=== PATIENT | female | born 1965 | race Caucasian/White ===

== ENCOUNTER → 2019-11-16 | Outpatient (CLI) | payer OTHER ==
--- NOTE | 2019-11-16 12:53 | XR ---
EXAM TYPE: LUMBAR SPINE X RAY SERIES COMPARISON: NONE HISTORY: Pain TECHNIQUE: 4 views are submitted. FINDINGS: Alignment is anatomic. The pedicles are intact. The transverse processes are intact. There is no s pondylolysis or spondylolisthesis. Mild hypertrophic changes. There is degenerative disc disease L5- S1. SI joints symmetric. Calcifications in pelvis likely vascular. Right upper quadrant nonspecific c alcification. IMPRESSION: 1. Mild hypertrophic degenerative change. 2. There is a calcification the right abdomen could be related to the kidney correlate with ultrasoun d
--- NOTE | 2019-11-16 12:54 | XR ---
EXAMINATION TYPE: XR shoulder limited RT DATE OF EXAM: 11/16/2019 COMPARISON: NONE HISTORY: Pain TECHNIQUE: Two views are submitted. FINDINGS: The osseous structures are intact. There is no acute fracture or dislocation. Mild hypertrophic juárez ge of the AC joint. IMPRESSION: 1. Mild AC joint arthropathy.
== END | disposition home or self-care (01) ==
LOC: RADXRMAIN 12:24
PROVIDERS: ATTEND Family Medicine
DX: M54.5 Low back pain (principal); M19.011 Primary osteoarthritis, right shoulder
CPT/HCPCS: 72110

== ENCOUNTER → 2020-06-28 | Outpatient (CLI) | payer OTHER ==
--- NOTE | 2020-07-05 12:24 | MM ---
Reason for exam: screening (asymptomatic). Baseline mammogram. History: Patient is postmenopausal. Physical Findings: Nurse did not find any significant physical abnormalities on exam. MG Screening Mammo w CAD Bilateral CC and MLO view(s) were taken. There are scattered fibroglandular densities. Finding: There is a 10 mm equal density (isodense), microlobulated round mass located 5 cm from the nipple in the upper outer quadrant, anterior position of the right breast. These results were verbally communicated with the patient and result sheet given to the patient on 06/28/20. ASSESSMENT: Incomplete: need additional imaging evaluation, BI-RAD 0 RECOMMENDATION: Ultrasound of the right breast.
--- NOTE | 2020-07-05 12:26 | USB ---
Reason for exam: additional evaluation requested from abnormal screening. History: Patient is postmenopausal. US Breast Workup Limited RT Right limited breast ultrasound including focal area of concern, retroareolar and axilla demonstrates a 16 x 12 x 13mm lobular, solid, hypoechoic lesion at 12 o'clock and a 8mm oval lymph node at the axilla tail These results were verbally communicated with the patient and result sheet given to the patient on 06/28/20. ASSESSMENT: Suspicious, BI-RAD 4 RECOMMENDATION: Ultrasound core biopsy of the right breast. Called Dr. Cline's office with mammographic findings and has scheduled an appointment for the patient for 08/03/20 at 10:[address] Chacko. Biopsy scheduled for 08/03/20 at 1:00. PRELIMINARY REPORT CALLED AND FAXED TO DR. CHACKO ON 07/05/20.
== END | disposition home or self-care (01) ==
LOC: RADMAMWWP 13:42
PROVIDERS: ATTEND Family Medicine
DX: Z12.31 Encounter for screening mammogram for malignant neoplasm of breast (principal); R92.8 Other abnormal and inconclusive findings on diagnostic imaging of breast
CPT/HCPCS: 77067

== ENCOUNTER → 2020-08-03 | Day surgery (SDC) | payer OTHER ==
[2020-08-03 12:19] VITALS: RESP 16
[2020-08-03 13:57] VITALS: BP 137/84; PULSE 93; TEMP 99
--- NOTE | 2020-08-03 14:02 | USB ---
EXAMINATION TYPE: US biopsy breast VAD RT, MG diagnostic mammo RT wo CAD DATE OF EXAM: 08/03/2020 CLINICAL HISTORY: R92.8 Abnormal Imaging. Abnormal mammogram and ultrasound. TECHNIQUE: Ultrasound guided core biopsy of right breast with clip placement and follow-up two-view mammogram.. COMPARISON: Prior studies June 28, 2020 FINDINGS: The procedure of ultrasound guided core biopsy was explained to the patient. Benefits, alternatives, and risks were discussed. An informed consent was then obtained. The patient was placed in supine positioning for imaging and for the procedure. Preprocedure ultrasound redemonstrates 1.5 x 0.8 cm hypoechoic oval-shaped lesion with calcification 12:00 position Zone-A right breast. The overlying skin was prepped and draped in usual sterile fashion. Lidocaine is used as anesthetic into the skin and subcutaneous tissue up to area of concern in the right breast. Under ultrasound guidance, a vacuum assisted biopsy gun device was used to obtain 3 core samples. Following this, a biopsy clip was left in lesion. The patient tolerated the procedure well without any immediate complication. The patient was kept in the radiology department for short stay after the procedure and then discharged home in stable condition. Post procedure mammogram shows successful deployment of clip at the lesion of concern on mammogram along the anterior aspect. IMPRESSION: Successful, uncomplicated ultrasound guided core biopsy of area of concern in the right breast, full pathology results to follow. Intermediate index of suspicion noted at time of procedure. Pathology Results: Benign RIGHT BREAST, TWELVE O'CLOCK, ULTRASOUND GUIDED CORE BIOPSY: Fibroadenoma. Recommendation Follow up ultrasound of the right breast in 6 months. ALAN
== END ==
LOC: RADUSWWP 12:07
PROVIDERS: ATTEND Surgery
DX: D24.1 Benign neoplasm of right breast (principal); R92.8 Other abnormal and inconclusive findings on diagnostic imaging of breast
CPT/HCPCS: 88305; 77065; 19083; A4648; J2001

== ENCOUNTER → 2020-08-03 | Outpatient (CLI) | payer OTHER ==
[2020-08-03 10:21] VITALS: BP 153/94; PULSE 85; RESP 18; TEMP 98.1
--- NOTE | 2020-08-03 10:33 | P.GSHP ---
History of Present Illness H&P Date: 08/03/20 Chief Complaint: abnormal ultrasound of the right breast Megan is a 54 year old white female seen in consultation for Dr. Reynaldo Floyd regarding a radiographic abnormality in the right breast. She had her first mammogram performed on [id number]. This revealed a 10 mm equal density microlobulated lesion 5 cm from the nipple in the upper outer quadrant on the right breast, no lesions of concern were noted on the left and ultrasound was performed which revealed a 16 x 12 mm lesion at 12:00 and an 8 mm lymph node in the axillary tail ultrasound core biopsy of the right breast was recommended. The patient does not feel any lumps masses or nodules in either breast. She does not note any nipple discharge or skin changes. Caffeine:1 cup coffee/day nicotine: none chocolate: occasional hormones: none Family history: Negative Hormonal history: Menarche: 10 , breast fed: yes, age at first : 17 menopause: 51 BCP: none Surgical history: Colonoscopy: Diverticuli Medical history: arthritis Social History: Nicotine: Negative Alcohol: Occasional Drugs: Negative - Constitutional Constitutional: Denies chills, Denies fever - EENT Eyes: left blurred vision, denies pain Ears: deny: decreased hearing, tinnitus Ears, nose, mouth and throat: Denies headache, Denies sore throat - Breasts Breasts: bilateral: as per HPI - Cardiovascular Cardiovascular: Denies chest pain, Denies shortness of breath - Respiratory Respiratory: Denies cough, Denies 7 - Gastrointestinal Gastrointestinal: Denies abdominal pain, Denies diarrhea, Denies nausea, Denies vomiting - Genitourinary (Female) Genitourinary: Denies dysuria, Denies hematuria - Menstruation Menstruation: Reports postmenopausal - Musculoskeletal Comment: arthritis back, hands, knees, ankles, torn right rotator cuff - Integumentary Integumentary: Denies pruritus, Denies rash - Neurological Neurological: Denies numbness, Denies weakness - Psychiatric Psychiatric: Denies anxiety, Denies depression - Endocrine Endocrine: Denies fatigue, Denies weight change - Hematologic/Lymphatic Comment: none - Allergic/Immunologic Allergic/Immunologic: Reports seasonal allergies Medications and Allergies Home Medications Medication Instructions Recorded Confirmed Type No Known Home Medications 07/18/20 08/03/20 History Allergies Allergy/AdvReac Type Severity Reaction Status Date / Time No Known Allergies Allergy Verified 08/03/20 10:13 Surgical - Exam BMI 43.8 - General well developed - Eyes normal ocular movement - ENT normal pinna, normal nares - Neck no masses, trachea midline - Respiratory normal expansion, normal respiratory effort, clear to auscultation - Cardiovascular Rhythm: regular Heart Sounds: normal: S1, S2 - Abdomen Abdomen: soft - Integumentary normal turgor - Neurologic no disoriented, no combative - Musculoskeletal normal gait - Psychiatric oriented to time, oriented to person, oriented to place, speech is normal, memory intact Breast exam: BRA: 42D inspection: grade 3 ptosis bilateral palpation: Right breast: Multiple positional exam fibrocystic changes, no dominant masses or nodules of concern Right axilla: No adenopathy of concern Left breast: Multiple positional exam was cystic changes, no dominant masses or nodules of concern Left axilla: No adenopathy of concern Results Hemogram and ultrasound results reviewed with Dr. Hemphill Assessment and Plan Assessment: Impression: 1. Radiographic abnormality right breast 2. BMI 43.8 Plan: 1. Ultrasound-guided core biopsy right breast 2. Follow-up visit after this procedure Risks and benefits of the procedure discussed with the patient. She understands and wishes to proceed. Risks include but are not limited to bleeding, infection, reaction to the anesthetic. If the results are discordant may consider open biopsy. Cc: Aidee Alonzo
== END ==
LOC: WWCWWP 09:59
PROVIDERS: ATTEND Surgery
DX: R92.8 Other abnormal and inconclusive findings on diagnostic imaging of breast (principal)

== ENCOUNTER → 2020-08-11 | Outpatient (CLI) | payer OTHER ==
[2020-08-11 12:41] VITALS: BP 150/90; PULSE 89; RESP 18; TEMP 98.1
--- NOTE | 2020-08-11 12:59 | P.PN ---
Subjective Progress Note Date: 08/11/20 Principal diagnosis: Fibroadenoma Ana is a 54-year-old white female status post ultrasound-guided core biopsy of the lesion in her right breast on . Pathology revealed a fibroadenoma. Patient tolerated procedure with no difficulty. Objective - Vital Signs Vital signs: Vital Signs Temp 98.1 F 08/11/20 12:37 Pulse 89 08/11/20 12:37 Resp 18 08/11/20 12:37 BP 150/90 08/11/20 12:37 Pulse Ox 97 08/11/20 12:37 Intake & Output 08/10/20 08/11/20 08/11/20 18:59 06:59 18:59 Weight 104.326 kg - Constitutional General appearance: Present: cooperative - EENT Eyes: Present: EOMI ENT: Present: hearing grossly normal - Respiratory Respiratory: bilateral: CTA - Cardiovascular Heart sounds: normal: S1, S2 - Integumentary Integumentary Comment(s): Biopsy site right breast clean and dry no evidence of any infection or hematoma - Musculoskeletal Musculoskeletal: Present: gait normal - Psychiatric Psychiatric: Present: A&O x's 3 Assessment and Plan Assessment: Impression: 1. Patient status post ultrasound-guided core biopsy left breast consistent with fibroadenoma versus benign and concordant 2. Repeat right breast ultrasound in 6 months with physician exam at that time CC: Aidee Alonzo
== END ==
LOC: WWCWWP 12:29
PROVIDERS: ATTEND Surgery
DX: D24.1 Benign neoplasm of right breast (principal)